=== PATIENT | male | born 1990 | race Caucasian/White ===

== ENCOUNTER 2019-02-18 03:18 | Emergency (ER) | payer MEDICAID, SELFPAY ==
[2019-02-18 03:19] VITALS: BP 151/112; PULSE 77; RESP 23; TEMP 37; O2SAT 100; BMI 24.3
--- NOTE | 2019-02-18 03:33 | ED.DCSUM_ITS ---
History of Present Illness Chief Complaint: Chest Pain Narrative: Patient is a 28-year-old male who presents with chest pain. He complains of 1 week of chest tightness. He is also had a productive cough and congestion. No fevers. No vomiting or diarrhea. He does complain of shortness of breath. Today he had more burning and sharp pain along the right side of his chest. This is actually since improved. He denies any medical history. No diabetes, hypertension, hyperlipidemia Past Medical History - Allergies and Home Meds Allergies/Adverse Reactions: Allergies No Known Allergies Allergy (Verified 02/18/19 03:22) Primary Care Physician: [facility] Doctor,Out of [NON-STAFF] - Past Medical History: None Smoking Status: Current every day smoker Review of Systems All systems negative except as indicated Cardiovascular: Reports: Chest pain Respiratory: Reports: Dyspnea, Cough, Sputum Physical Exam Vital Signs/Narrative: Vital Signs Temp Pulse Resp BP Pulse Ox 02/18/19 03:19 98.6 F 77 23 H 151/112 H 100 Inital Vital Signs reviewed: Yes General: Well nourished Head: Normocephalic Eyes: EOMI ENT: Moist mucous membranes Neck: Supple Cardiovascular: Regular rate, Regular rhythm Respiratory: No distress, CTA bilaterally, Chest nontender Abdomen: Soft Extremities: Nontender, No edema Skin: Normal color Neurological: Alert Psychological: Normal affect Diagnostic/Tx/Re-eval 02/18/19 04:05 Chest PA and Lateral [RAD] Stat Laboratory Results 02/18/19 02/18/19 03:30 03:30 WBC 11.4 H RBC 4.93 Hgb 15.2 Hct 44.3 MCV 89.9 MCH 30.8 MCHC 34.3 RDW Std Deviation 40.2 RDW Coeff of Danielle 12.3 Plt Count 215 MPV 10.6 Immature Gran % (Auto) 0.400 Neut % (Auto) 61.5 Lymph % (Auto) 28.4 [place] % (Auto) 8.5 Eos % (Auto) 0.8 Baso % (Auto) 0.4 Absolute Neuts (auto) 7.0 Absolute Lymphs (auto) 3.23 Nucleated RBC % 0 Sodium 142 Potassium 4.0 Chloride 106 Carbon Dioxide 30.0 Anion Gap 6 BUN 11 Creatinine 0.88 Estim Creat Clear Calc 137.17 Est GFR (MDRD) Af Amer 133 Est GFR (MDRD) Non-Af 110 BUN/Creatinine Ratio 12.6 Glucose 90 Calcium 8.9 Troponin I < 0.015 - Medical Decision Making EKG shows normal sinus rhythm at a rate of 71 with no acute ischemic changes. Laboratory studies as above unremarkable. Two-view chest x-ray on my review shows no acute process no focal infiltrate or pneumothorax. Patient symptoms are likely related to bronchitis and pleurisy. He was advised on supportive care. He understands to return for new or worsening symptoms. Patient was discharged. ED Disposition - Plan for ED Patient: Disposition: Home or Assisted Living Diagnosis: Chest pain, Bronchitis Instructions: Pleurisy Referrals: [facility] Doctor,Out of [NON-STAFF] -
--- NOTE | 2019-02-18 03:37 | ED.RN ---
NO OLD EKGS
--- NOTE | 2019-02-18 03:46 | EKG12_ITS ---
Test Reason : CP Blood Pressure : / mmHG Vent. Rate : 071 BPM Atrial Rate : 071 BPM P-R Int : 148 ms QRS Dur : 086 ms QT Int : 392 ms P-R-T Axes : 010 017 034 degrees QTc Int : 425 ms Normal sinus rhythm with sinus arrhythmia Normal ECG Confirmed by ANGELICA SAUCEDO ([id number]), editorial project manager KEVIN PETTIT ([id number]) on 02/21/2019 12:18:18 PM Referred By: REYES Confirmed By:ANGELICA SAUCEDO
[2019-02-18 04:05] LABS: Absolute Lymphocyte Count 3.23 X10^3/uL (0.83-4.51); Basophil# 0.04 X10^3/uL; Basophil% 0.4 % (0-1); Eosinophil# 0.09 X10^3/uL; Eosinophils% 0.8 % (0-5); Hematocrit 44.3 % (40-54); Hemoglobin 15.2 g/dL (13.0-16.5); Lymphocyte # 3.23 X10^3/ul (4.0); Lymphocyte % 28.4 % (19-41); Mean Corp Hgb Conc 34.3 g/dL (32-36); Mean Corpuscular Hgb 30.8 pg (27.0-32.0); Mean Corpuscular Volume 89.9 fL (80-94); Mean Platelet Vol. 10.6 fl (6.2-12.0); Monocyte# 0.97 X10^3/uL; Monocyte% 8.5 % (0-10); NRBC Flagged by Analyzer 0 % (0-5); Neutrophil # 6.99 X10^3/uL (2.7-7.7); Neutrophil % 61.5 % (47-70); Platelet Count 215 K/mm3 (150-450); RBC Distribution Width CV 12.3 % (11.6-14.6); RBC Distribution Width SD 40.2 fl (35.1-43.9); Red Blood Count 4.93 M/mm3 (4.6-6.2); White Blood Count 11.4 K/mm3 (4.4-11.0)
--- NOTE | 2019-02-18 04:05 | RAD_ITS ---
HISTORY: CHEST PAIN, SOB, COUGH EXAM: XR Chest 2 Views: COMPARISON: None FINDINGS: # of images incl. paperwork: 2 Lungs are clear. Heart is not enlarged. Bones are normal. Pulmonary vascularity is distinct. No effusions. RAD/Chest PA and Lateral IMPRESSION: Normal. at 0431 Reported and signed by: Jarad Zaman MD Electronically Signed: Jarad Zaman MD at 4:29 EDT Tel , Service support ,
[2019-02-18 04:18] LABS: Anion Gap 6 (5-15); BUN 11 mg/dL (7-18); BUN/Creat Ratio 12.6 RATIO (10-20); Calcium,Total 8.9 mg/dL (8.5-10.1); Chloride 106 mmol/L (98-107); Creatinine, Serum 0.88 mg/dL (0.70-1.30); EST Glomerular Filtration Rate 110 mL/min (>60); Est Glom Filt Rate - Afr Amer 133 mL/min (>60); Estimated Creatinine Clearance 137.17 ml/min; Glucose 90 mg/dL (74-106); Sodium Level 142 mmol/L (136-145)
[2019-02-18 04:25] VITALS: BP 128/76; PULSE 84; RESP 17; O2SAT 98
== END 2019-02-18 04:33 | disposition home or self-care (01) ==
PROVIDERS: Emergency Provider Emergency Medicine
DX: R07.9 Chest pain, unspecified (principal); J40 Bronchitis, not specified as acute or chronic; F17.200 Nicotine dependence, unspecified, uncomplicated
CPT/HCPCS: 71046; 80048; 84484; 85025; 93005; 99284; A4216

== ENCOUNTER 2019-10-04 21:58 | Emergency (ER) | payer MEDICAID, SELFPAY ==
[2019-10-04 21:59] VITALS: BP 152/89; PULSE 121; RESP 20; TEMP 36.7; O2SAT 97; BMI 25.5
--- NOTE | 2019-10-04 22:27 | EKG12_ITS ---
Test Reason : SOB Blood Pressure : / mmHG Vent. Rate : 088 BPM Atrial Rate : 088 BPM P-R Int : 170 ms QRS Dur : 082 ms QT Int : 348 ms P-R-T Axes : 063 018 037 degrees QTc Int : 421 ms Sinus rhythm with sinus arrhythmia with occasional Premature ventricular complexes Otherwise normal ECG Confirmed by GRETCHEN ARIAS, KENYA ([id number]), video editor LIV DING ([id number]) on 10/11/2019 3:30:13 PM Referred By: ALDO Confirmed By:KENYA GODINEZ MD
--- NOTE | 2019-10-04 22:41 | ED.VIS.CHEST ---
History of Present Illness Chief Complaint: Chest Pain Informant: Patient Onset: Weeks - 1 Activity at onset: Rest - only. goes away when walking/active. Timing: Intermittent Quality: Pressure, Tightness Location: Substernal - without radiation Current Severity: Mild Maximum Severity: Moderate Worsened By: - - lying supine. resting.. Not Worsened By: Exertion, Movement of Arm, Eating, Palpation, Breathing, Coughing Relieved By: - - walking Associated Symptoms: Nausea - a little earlier today, Cough - occ productive, Acid Reflux - feels like acid reflux sometimes. Negative for: Vomiting, Diaphoresis, Dyspnea, Fever, Lightheadedness, Palpitations Narrative: Patient has been having this discomfort off and on for 1 week, worse or more noticeable/frequent in the last 3 days. Feels like tightness and pressure nonpleuritic. No recent illnesses. Patient presents during the national coronavirus emergency, and has had no contact with any infected persons that he knows of. States he has been trying to stay at home and stay away from people. He denies any rashes, swelling in his legs. Denies any heart problems, or other medical problems, but admits he does not have a PCP and does not see doctors. States he has been trying NyQuil, which has been seeming to help, he took Tums once and it helped temporarily, he switch from NyQuil to Mucinex at the recommendation of a family member, since he was having some chest congestion. He states his cough is not major, but when he does try to cough he can usually get up some sputum that is nondescriptive. Denies any vomiting or diarrhea, blood in stool, melena. CVD Risk Factors: Smoking. Negative for: Hypertension, Diabetes, Hypercholesterolemia, Family History 1' </=55 PE Risk Factors: Negative for: Recent Travel/Surgery, Recenet Immobilization, Prior DVT or PE, Cancer, OCP + Smoking + >/=35 Past Medical History - Allergies and Home Meds Allergies/Adverse Reactions: Allergies No Known Allergies Allergy (Verified 10/04/19 21:59) Primary Care Physician: Care Physician,No Primary [Primary Care Provider] - Past Medical History: None Smoking Status: Current every day smoker Alcohol: Occasional Drugs: None Review of Systems General: Denies: Chills, Fever, Sweats Eyes: Denies: Visual changes - bilaterally, Diplopia ENT: Denies: Rhinorrhea, Sore throat Cardiovascular: Reports: Chest pain. Denies: Palpitations Respiratory: Reports: Cough, Sputum. Denies: Dyspnea, Dyspnea on exertion Gastrointestinal: Denies: Abdominal pain, Nausea, Vomiting, Diarrhea, Melena, Hematochezia Genitourinary: Denies: Dysuria, Hematuria, Frequency Musculoskeletal: Denies: Myalgias, Arthralgias, Neck pain, Back pain, Swelling, Extremity Pain Skin: Denies: Rash, Wounds Neurological: Denies: Headache, Weakness, Numbness Physical Exam Vital Signs/Narrative: Vital Signs Temp Pulse Resp BP Pulse Ox 10/04/19 21:59 98.1 F 121 H 20 H 152/89 H 97 Inital Vital Signs reviewed: Yes General: Well nourished, Well developed, No Acute Distress - Well-appearing, conversive in full sentences Head: Normocephalic, Atraumatic Eyes: Perrl, EOMI ENT: Moist mucous membranes, No rhinorrhea, TM's clear, - - Posterior oropharynx clear. Negative for: Nasal congestion Neck: Supple, Nontender, No lymphadenopathy, No JVD Cardiovascular: Regular rate, Regular rhythm, No murmurs. Negative for: Tachycardia Respiratory: No distress, CTA bilaterally, Chest nontender Abdomen: Soft, Nondistended, Normal bowel sounds, Tender - mild, epigastric only. Negative for: Guarding, Rebound tenderness, Marks's sign Back: Nontender, Normal Inspection Extremities: Nontender, No edema. Negative for: Calf Tenderness Skin: Normal color, No rash, No Trauma Neurological: Alert, Oriented x3, Cranial nerves II-XII grossly intact, Normal Strength, Normal Sensation, Normal Gait Psychological: Normal affect, Normal Mood Diagnostic/Tx/Re-eval Impressions Chest X-Ray 10/04/19 22:45 IMPRESSION: Normal x-ray examination of the chest. Electronically Signed: Zee Cutler MD at 22:58 EDT Tel , Service support , 10/04/19 22:45 Chest 1 View (Portable) [RAD] Stat Laboratory Results 10/04/19 10/04/19 22:53 22:53 WBC 9.4 RBC 5.00 Hgb 15.3 Hct 44.4 MCV 88.8 MCH 30.6 MCHC 34.5 RDW Std Deviation 39.0 RDW Coeff of Danielle 12.1 Plt Count 228 MPV 10.6 Immature Gran % (Auto) 0.600 Neut % (Auto) 57.6 Lymph % (Auto) 27.6 [place] % (Auto) 12.7 H Eos % (Auto) 1.2 Baso % (Auto) 0.3 Absolute Neuts (auto) 5.4 Absolute Lymphs (auto) 2.58 Nucleated RBC % 0 Sodium 143 Potassium 3.9 Chloride 110 H Carbon Dioxide 27.0 Anion Gap 6 BUN 14 Creatinine 0.82 Estim Creat Clear Calc 147.21 Est GFR (MDRD) Af Amer 142 Est GFR (MDRD) Non-Af 118 BUN/Creatinine Ratio 17.0 Glucose 74 Calcium 9.6 Troponin I < 0.015 - Rhythm Strip Rhythm Strip: Sinus Rhythm Rate: 88 Ectopy: PVC(s) - EKG Initial EKG Interpretation: Sinus Rhythm, No Acute Injury Pattern, - - Ventricular ectopy. Otherwise normal. Prior: Unchanged - Except for PVCs Treatment: GI Cocktail - with improvement; part of the discomfort resolved, but a different part of it is still there. - Medical Decision Making Patient had some ectopy but did not feel any of this. His work-up is negative. Further history confirms that when he belches, the discomfort lets up. Also, in the last week since he has been having this, he has been taking a lot of Excedrin and Aleve. I recommend placing him on Protonix, and discontinuing NSAIDs, if he wants to take the cold medications, I think that is fine. Advise follow-up, given the doctor. ED Disposition - Plan for ED Patient: Disposition: Home or Assisted Living Diagnosis: Chest pain, unspecified, Upper respiratory tract infection Instructions: ED URI Viral, ED Chest Pain NonCardiac Prescriptions: Pantoprazole Sodium [Protonix] 40 mg PO DAILY #30 tab Prescription Printed Referrals: Yvette Stokes MD [STAFF PHYSICIAN] - 1 Week if not improving
--- NOTE | 2019-10-04 22:45 | RAD_ITS ---
STUDY: X-RAY CHEST REASON FOR EXAM: Male, 28 years old. chest pain with sob TECHNIQUE: Single AP portable view of the chest. COMPARISON: 02/18/2019. FINDINGS: The lungs are clear and expanded. There is no demonstrated pleural abnormality. Normal size heart. Normal mediastinum and jennifer. Normal visualized pulmonary arteries. Normal visualized aortic arch and descending thoracic aorta. Normal visualized thoracic spine. Normal visualized ribs, clavicles, and shoulders. There is no demonstrated abnormality of the visualized soft tissue structures of the upper abdomen. RAD/Chest 1 View (Portable) IMPRESSION: Normal x-ray examination of the chest. Electronically Signed: Zee Cutler MD at 22:58 EDT Tel , Service support ,
[2019-10-04] MEDS: Mag Hydrox/Al Hydrox/Simeth 30 ML UDC PO (23:03)
[2019-10-04 23:23] LABS: Absolute Lymphocyte Count 2.58 X10^3/uL (0.83-4.51); Absolute Neutrophil Count 5.4 X10^3/uL (2.0-7.7); Basophil# 0.03 X10^3/uL; Basophil% 0.3 % (0-1); Eosinophil# 0.11 X10^3/uL; Eosinophils% 1.2 % (0-5); Hematocrit 44.4 % (40-54); Hemoglobin 15.3 g/dL (13.0-16.5); Lymphocyte # 2.58 X10^3/ul (4.0); Lymphocyte % 27.6 % (19-41); Mean Corp Hgb Conc 34.5 g/dL (32-36); Mean Corpuscular Hgb 30.6 pg (27.0-32.0); Mean Corpuscular Volume 88.8 fL (80-94); Mean Platelet Vol. 10.6 fl (6.2-12.0); Monocyte# 1.19 X10^3/uL; Monocyte% 12.7 % (0-10); NRBC Flagged by Analyzer 0 % (0-5); Neutrophil # 5.39 X10^3/uL (2.7-7.7); Neutrophil % 57.6 % (47-70); Platelet Count 228 K/mm3 (150-450); RBC Distribution Width CV 12.1 % (11.6-14.6); White Blood Count 9.4 K/mm3 (4.4-11.0)
[2019-10-04 23:24] LABS: Anion Gap 6 (5-15); BUN 14 mg/dL (7-18); Calcium,Total 9.6 mg/dL (8.5-10.1); Chloride 110 mmol/L (98-107); Creatinine, Serum 0.82 mg/dL (0.70-1.30); EST Glomerular Filtration Rate 118 mL/min (>60); Est Glom Filt Rate - Afr Amer 142 mL/min (>60); Estimated Creatinine Clearance 147.21 ml/min; Glucose 74 mg/dL (74-106); Potassium 3.9 mmol/L (3.5-5.1); Sodium Level 143 mmol/L (136-145)
[2019-10-04] MEDS: Pantoprazole Sodium 40 MG Tablet PO (23:51)
[2019-10-04 23:53] VITALS: BP 111/78; PULSE 68; RESP 18; O2SAT 98
== END 2019-10-04 23:54 | disposition home or self-care (01) ==
PROVIDERS: Emergency Provider Emergency Medicine
DX: R07.9 Chest pain, unspecified (principal); J06.9 Acute upper respiratory infection, unspecified; F17.200 Nicotine dependence, unspecified, uncomplicated
CPT/HCPCS: 36415; 71045; 80048; 84484; 85025; 93005; 99282